=== PATIENT | female | born 1955 | race Caucasian/White ===

== ENCOUNTER 2023-07-08 11:30 | Emergency (ER) | payer OTHER, SELFPAY ==
[2023-07-08 11:30] VITALS: BMI 21.6
[2023-07-08 11:37] VITALS: BP 144/82
--- NOTE | 2023-07-08 13:24 | ED.GENMED ---
History of Present Illness
General
Chief Complaint: DVT/Possible Blood Clot
Time Seen by Provider: 07/08/23 12:38
Travel History
Have you had any contact with someone who has COVID-19?: No
Do you have any symptoms of coronavirus? Fever > 100 degrees, chills, cough, shortness of breath, sore throat, loss of taste or smell, muscle aches, or headache?: No
History of Present Illness
History of Present Illness:
67-year-old female with history of A-fib on Eliquis presents to the emergency department for evaluation of tingling sensation to the left first MCP joint gradually progressing to left calf pain and difficulty walking beginning today. Denies any
traumatic injuries or falls. Denies any low back or pelvic pain. No pain at rest. Denies any claudication or discoloration. No fevers or chills. Has been compliant with her anticoagulants
Past History
Past History
ED Past Medical History: Arrthythmia (Paroxysmal atrial fibrillation) and Other (AAA)
ED Past Surgical History: Appendectomy and Gynecological
PSI?: No
Social History
Tobacco: Smoker (1 pack per day)
Alcohol: Occasional (6 ounces of vodka daily)
Drug: None
Personal:
Living: with family
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
Family History
Family History: Other (Noncontributory)
Review of Systems
Review of Systems
Allergies reviewed?: Yes
All Other Systems: ROS reviewed and negative except as documented in HPI and ROS
Phy Exam
Physical Exam
Physical Exam:
GEN: Well appearing, NAD, WDWN
HEENT: Oral mucosa moist, no scleral icterus
Cardiac: Regular rate
Lung: No respiratory distress, no tachypnea
MSK: No gross deformity or injuries. No left calf edema. Calf compartments are soft x 4 and there is no pain with passive stretch of the ankle. Mild tenderness elicited to the distal medial calf muscle belly with no crepitus or skin changes.
Left dorsalis pedis and posterior tibialis pulses are strong. Normal sensation to the left foot
Skin: Good color, no pallor or jaundice, no rashes
Neuro: AO x3, moves all extremities freely
Psych: Calm, cooperative
Course
Vital Signs
Initial and Last Documented VS:
Initial Vital Signs
Temp Pulse Resp BP Pulse Ox
98.8 F 77 18 144/82 99
07/08/23 11:37 07/08/23 11:37 07/08/23 11:37 07/08/23 11:37 07/08/23 11:37
Last Documented Vital Signs
Temp Pulse Resp BP Pulse Ox
98.8 F 77 18 144/82 99
07/08/23 11:37 07/08/23 11:37 07/08/23 11:37 07/08/23 11:37 07/08/23 11:37
MDM/Problems Addressed
MDM/Problems Addressed:
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 Given that she is anticoagulated do not see any indication
for ultrasound and lack of traumatic injuries or bony tenderness is reassuring against fracture. Will recommend topical anti-inflammatories and PCP follow-up
*Critical Care Note
Total Time (30-74mins, 75-104mins- exclusive of procedures): Not Applicable
ED Attending Note
-
Portions of this chart may have been created with voice recognition software.� Occasional wrong word or��sound alike� substitutions may have occurred due to the inherent limitations of voice recognition software.
Discharge Plan
Departure
Patient Disposition: Home (Routine Discharge)
Date of Disposition: 07/08/23
Time of Disposition: 13:26
Patient with high blood pressure during this ER visit?: Yes
Discharge Problem:
Strain of left calf muscle
Instructions: Leg Muscle Strain ED
Prescriptions:
New
diclofenac sodium 1 % gel
2 g topical QID PRN (Reason: Pain) Qty: 100 0RF
No Action
sotalol 80 MG tablet
80 mg PO BID
cyanocobalamin (vitamin B-12) [Vitamin B-12] 250 MCG tablet
500 mcg PO DAILY
apixaban [Eliquis] 5 MG tablet
5 mg PO BID
diltiazem HCl [Cardizem CD] 360 MG capsule,extended release 24hr
360 mg PO DAILY Qty: 30 0RF
pantoprazole 40 MG tablet,delayed release (DR/EC)
40 mg PO DAILY Qty: 20 0RF
Referrals:
Ezequiel Harris MD [Family Provider] -
Interventions
Interventions:
*Risk Screen - Suicide Last Done: 07/08/23 11:40
*General Assessment Last Done: 07/08/23 11:40
*Neglect/Abuse Screening Last Done: 07/08/23 11:40
*Nursing Disposition Last Done: 07/08/23 13:38
ED- Cardiac Assessment Last Done: 07/08/23 12:22
ED- Pulmonary Assessment Last Done: 07/08/23 12:22
ED-Peripheral Vascular Assessment Last Done: 07/08/23 12:22
Discharge Date and Time
Discharge Date/Time: 07/08/23 13:39
Print Language: GEORGIAN
== END 2023-07-08 13:39 | disposition home or self-care (01) ==
LOC: EMR 11:30
PROVIDERS: EMERGENCY PHYSICIAN Emergency Medicine; FAMILY PHYSICIAN Family Medicine
DX: S86.112A Strain of other muscle(s) and tendon(s) of posterior muscle group at lower leg level, left leg, initial encounter (principal); X58.XXXA Exposure to other specified factors, initial encounter; R03.0 Elevated blood-pressure reading, without diagnosis of hypertension; I48.0 Paroxysmal atrial fibrillation; I71.40 Abdominal aortic aneurysm, without rupture, unspecified; F17.210 Nicotine dependence, cigarettes, uncomplicated; Z79.01 Long term (current) use of anticoagulants; Z88.0 Allergy status to penicillin
CPT/HCPCS: 99283

== ENCOUNTER → 2024-11-15 14:31 | Outpatient (REF) | payer OTHER, SELFPAY | LOC: RAD 14:31 | PROVIDERS: ATTENDING PHYSICIAN Family Medicine | DX: I73.9 Peripheral vascular disease, unspecified (principal) | CPT/HCPCS: 93925 ==